=== PATIENT | female | born 1980 | race Caucasian/White ===

== ENCOUNTER 2016-09-18 08:23 | Emergency (ER) | payer BC ==
[2016-09-18 08:38] VITALS: BP 138/95
--- NOTE | 2016-09-18 09:16 | UC ---
Headache HPI - HPI Summary HPI Summary: 36 yo female with headache which started about 2 weeks ago after returning from trip to [facility]. She intially had diarrhea and was seen a [facility] and had IV fluids Had a mild VELASQUEZ then diarrhea lasted 2 days Headache is primarily right frontal and radiates to occiput some nausea and photophobia no relief with OTC meds no fever no stiff neck no hx migraines no sinus symptoms - History Of Current Complaint Chief Complaint: UC Stated Complaint: HEADACHE Time Seen by Provider: 09/18/16 09:00 Hx Obtained From: Patient Hx Last Menstrual Period: 09/03/16 Onset/Duration: Gradual Onset, Lasting Weeks Onset Of Symptoms: Gradual Initially Headache Was: Mild Currently Pain Is: Severe Pain Intensity: 8 Pain Scale Used: 0-10 Numeric Timing: Constant Character: Throbbing Location of Headache: Frontal - right Aggravating Factor: Nothing Allevating Factors: Nothing Associated Signs And Symptoms: Positive: Nausea - Allergies/Home Medications Allergies/Adverse Reactions: Allergies Allergy/AdvReac Type Severity Reaction Status Date / Time No Known Allergies Allergy Verified 04/11/16 10:39 Home Medications: Home Medications Ibuprofen [Advil] 800 mg PO Q6H PRN 09/18/16 [History Confirmed 09/18/16] PMH/Surg Hx/FS Hx/Imm Hx Previously Healthy: Yes - Surgical History Surgical History: Yes Surgery Procedure, Year, and Place: teratoma of right ovary removed 2013 - Family History Known Family History: Positive: None, Cardiac Disease - grandparents Negative: Hypertension, Blood Disorder - Social History Alcohol Use: Occasionally Alcohol Amount: one a day Substance Use Type: None Smoking Status (MU): Never Smoked Tobacco Have You Smoked in the Last Year: No - Immunization History Most Recent Influenza Vaccination: fall 2015 Review of Systems Constitutional: Negative Skin: Negative Eyes: Negative ENT: Negative Respiratory: Negative Cardiovascular: Negative Gastrointestinal: Negative Genitourinary: Negative Motor: Negative Neurovascular: Negative Musculoskeletal: Negative Neurological: Headache Psychological: Negative All Other Systems Reviewed And Are Negative: Yes Physical Exam Triage Information Reviewed: Yes Appearance: Well-Nourished, Pain Distress Vital Signs: Initial Vital Signs Temp 99.2 F 09/18/16 08:33 Pulse 78 09/18/16 08:33 Resp 16 09/18/16 08:33 BP 138/95 09/18/16 08:33 Pulse Ox 100 09/18/16 08:33 Vital Signs Reviewed: Yes Eyes: Positive: Conjunctiva Clear, Other: - eomi/perrl ENT: Positive: Hearing grossly normal, TMs normal, Other: - no sinus tenderness. Negative: Nasal congestion, Nasal drainage, Tonsillar swelling, Tonsillar exudate, Trismus, Muffled/hoarse voice Neck: Positive: Supple, Nontender, No Lymphadenopathy Respiratory: Positive: Lungs clear, Normal breath sounds, No respiratory distress, No accessory muscle use Cardiovascular: Positive: RRR Abdomen Description: Positive: No Organomegaly, Soft. Negative: CVA Tenderness (R), CVA Tenderness (L) Musculoskeletal: Positive: ROM Intact, No Edema Neurological: Positive: Alert, Other: - gcs 15/15, non focal exam/normal gait Psychological Exam: Normal Skin Exam: Normal Diagnostics - Laboratory Diagnostic Studies Completed/Ordered: CT brain - Negative Headache Course/Dx - Course Course Of Treatment: unable to medicate here because she is driving - Differential Dx/Diagnosis Provider Diagnoses: headache of uncertain cause Discharge - Discharge Plan Condition: Stable Disposition: HOME Prescriptions: Ondansetron TAB* [Zofran Tab*] 4 mg PO Q6H PRN #10 tab PRN Reason: Nausea traMADol TAB* [Ultram*] 50 mg PO Q4HR PRN #20 tab MDD 6 PRN Reason: Pain Patient Education Materials: Acute Headache (ED) Referrals: Aston Aguilar MD [Primary Care Provider] - 1 Day Additional Instructions: headache of uncertain cause you can continue advil 3 upto 4x day as needed for pain don't take tramadol and drive or work blood work is pending please see your MD in 1-2 days for evaluation and to review your blood work
--- NOTE | 2016-09-18 09:43 | RAD ---
INDICATION: Headache COMPARISON: None TECHNIQUE: Noncontrast axial source images were acquired from the skull base to the vertex. The examination is limited to minor extent secondary to motion artifact FINDINGS: Ventricles/sulci: The ventricles and cisterns are normal in size and configuration for age. Brain parenchyma: There is no focal parenchymal finding, evidence of intracranial mass, or intracranial mass effect. Intracranial hemorrhage:None. Extra-axial spaces: There are no abnormal extra axial fluid collections or evidence of extra-axial mass. Calvarium: There is no calvarial fracture or other calvarial abnormality. Scalp: There is no evidence of scalp or extracalvarial soft tissue abnormality. Paranasal sinuses/mastoid: The paranasal sinuses and mastoid air cells are clear. Other: None. IMPRESSION: Mildly Limited examination. No acute intracranial findings.
[2016-09-18 11:34] LABS: Hematocrit 41 % (35-47); Hemoglobin 13.3 g/dl (12.0-16.0); Mean Corpuscular HGB Conc 33 g/dl (31-36); Mean Corpuscular Hemoglobin 30 pg (27-31); Mean Corpuscular Volume 90 fL (80-97); Mean Platelet Volume 7 um3 (7.4-10.4); Red Blood Count 4.48 10^6/ul (4.0-5.4); Red Cell Distribution Width 14 % (10.5-15)
[2016-09-18 12:05] LABS: Albumin 4.1 g/dL (3.2-5.2); BUN/Creatinine Ratio 19.3 (8-20); Calcium 9.5 mg/dL (8.6-10.3); EGFR African American 152.7 (>60); EGFR Non-African American 118.7 (>60); Globulin 3.1 g/dL (2-4); Potassium 3.9 mmol/L (3.5-5.0); Total Bilirubin 0.5 mg/dL (0.2-1.0); Total Protein 7.2 g/dL (6.4-8.9)
== END 2016-09-18 10:02 | disposition home or self-care (01) ==
LOC: UCEAST 08:23
DX: R51 Headache (principal); R11.0 Nausea
CPT/HCPCS: 36415; 70450; 80053; 85025; 99212; G0463

== ENCOUNTER 2016-11-01 21:21 | Emergency (ER) | payer BC ==
[2016-11-01 21:48] VITALS: BP 133/86
[2016-11-01] MEDS ORDERED: Phenazopyridine TAB* 100 MG PO ONE (22:05)
[2016-11-01] MEDS ORDERED: Ciprofloxacin TAB* 500 MG PO ONE (22:05)
--- NOTE | 2016-11-01 22:12 | UC ---
Complaint Female HPI - HPI Summary HPI Summary: Patient arrives with CC of urgency, frequency, burning upon urination x 7 days. She endorses right sided flank pain as well. She has had kidney and bladder infections in the past. She endorses dark colored and cloudy urine. Denies diaphoresis and chills. Denies known fever. No abnormal vaginal discharge reported. Otherwise healthy. Patient is concerned over gross hematuria which she noticed today. Otherwise healthy and takes no medications. - History Of Current Complaint Chief Complaint: UCGeneralIllness Stated Complaint: URINARY ISSUE Time Seen by Provider: 11/01/16 21:47 Hx Obtained From: Patient Hx Last Menstrual Period: 10/27/16 ?: No Onset/Duration: Sudden Onset Timing: Constant Severity Initially: Moderate Severity Currently: Moderate Pain Intensity: 5 Pain Scale Used: 0-10 Numeric Character: Burning, Cramping Aggravating Factor(s): Urination Alleviating Factor(s): Nothing Associated Signs And Symptoms: Positive: Back Pain - Risk Factors Ectopic Risk Factor: Maternal Age ^ 30 Ovarian Torsion Risk Factor: Reproductive Age, Ovarian Cysts/Tumors - Allergies/Home Medications Allergies/Adverse Reactions: Allergies Allergy/AdvReac Type Severity Reaction Status Date / Time No Known Allergies Allergy Verified 11/01/16 21:37 PMH/Surg Hx/FS Hx/Imm Hx Previously Healthy: Yes - Surgical History Surgical History: Yes Surgery Procedure, Year, and Place: teratoma of right ovary removed 2013 - Family History Known Family History: Positive: None, Cardiac Disease - grandparents Negative: Hypertension, Blood Disorder - Social History Occupation: Employed Full-time Lives: With Family Alcohol Use: Occasionally Alcohol Amount: one a day Substance Use Type: None Smoking Status (MU): Never Smoked Tobacco Have You Smoked in the Last Year: No - Immunization History Most Recent Influenza Vaccination: fall 2015 Review of Systems Constitutional: Negative Respiratory: Negative Cardiovascular: Negative Gastrointestinal: Negative Genitourinary: Dysuria, Hematuria, Frequency, Urgency Neurovascular: Negative Musculoskeletal: Negative Neurological: Negative Psychological: Negative All Other Systems Reviewed And Are Negative: Yes Physical Exam Triage Information Reviewed: Yes Appearance: Well-Appearing, Well-Nourished Vital Signs: Initial Vital Signs Temp 99.3 F 11/01/16 21:39 Pulse 87 11/01/16 21:39 Resp 16 11/01/16 21:39 BP 133/86 11/01/16 21:39 Pulse Ox 100 11/01/16 21:39 Vital Signs Reviewed: Yes Eye Exam: Normal Eyes: Positive: Conjunctiva Clear Dental Exam: Normal Neck exam: Normal Neck: Positive: Supple, Nontender, No Lymphadenopathy Respiratory Exam: Normal Respiratory: Positive: Chest non-tender Cardiovascular Exam: Normal Cardiovascular: Positive: RRR Abdominal Exam: Normal Abdomen Description: Positive: Nontender Musculoskeletal Exam: Normal Neurological Exam: Normal Neurological: Positive: Alert, Muscle Tone Normal Psychological Exam: Normal Psychological: Positive: Normal Response To Family Skin Exam: Normal Complaint Female Dx - Course Course Of Treatment: UA performed. WBC, RBC and leuks seen. Labs WNL. Patient experiencing urgency, frequency and pain on urination. Dark urine noted. No abnormal vaginal discharge or bleeding. No CVA tenderness bilaterally. No previous UTI within last 6 months and no recent Augmentin use. Will treat for uncomplicated UTI. Will treat with Cipro to cover for pyelonephritis. Pyridium given for comfort. Return precautions and follow up with PCP. - Differential Dx/Diagnosis Differential Diagnosis/HQI/PQRI: Cervicitis, Ovarian Cyst, Renal Colic, Ureteral Stone, Urinary Tract Infection Provider Diagnoses: URINARY TRACT INFECTION Discharge - Discharge Plan Condition: Stable Disposition: HOME Prescriptions: Ciprofloxacin TAB* [Cipro 500 MG TAB*] 500 mg PO BID #14 tab Phenazopyridine TAB* [Pyridium 100 mg TAB*] 100 mg PO TID #12 tab Patient Education Materials: Urinary Tract Infection in Women (ED), Acute Pyelonephritis (ED) Referrals: Aston Aguilar MD [Primary Care Provider] - Additional Instructions: Dx. Urinary Tract Infection I have given you information on pyelonephritis If symptoms become worse, come back to UC. Drink plenty of fluids. Supplement with cranberry or tellez juice. You may also take an over the counter cranberry supplement. If you have any questions about this, you may ask your pharmacist. If your symptoms have not improved in 1-2 days, if you develop fever, sweats or chills, please go to your emergency room, or call your PCP. Antibiotics were prescribed to you. Please take as directed. Supplement with over the counter probiotics on the opposite schedule of your antibiotic to prevent secondary infections. Do not take together as they may counteract each other. Pyridium: This medication is used to treat pain, burning, increased urination, and increased urge to urinate. These symptoms are usually caused by infection, injury, surgery, catheter, or other conditions that irritate the lower urinary tract. Pyridium will treat the symptoms of a urinary tract infection, but this medication does not treat the actual infection. Take the antibiotic that your doctor prescribes to treat your infection. Pyridium will most likely darken the color of your urine to an orange or red color. This is a normal effect and is not cause for alarm unless you have other symptoms such as pale or yellowed skin, fever, stomach pain, nausea, and vomiting. Darkened urine may also cause stains to your underwear, which may or may not be removed by laundering. It can also permanently stain soft contact lenses, and you should not wear them while taking this medicine.
== END 2016-11-01 22:25 | disposition home or self-care (01) ==
LOC: UCEAST 21:21
DX: N39.0 Urinary tract infection, site not specified (principal)
CPT/HCPCS: 81003; 87077; 87086; 87186; 99212; A9270-GY; G0463

== ENCOUNTER 2017-02-27 11:40 | Emergency (ER) | payer BC ==
[2017-02-27 12:59] LABS: Hematocrit 43 % (35-47); Mean Corpuscular HGB Conc 32 g/dl (31-36); Mean Corpuscular Hemoglobin 30 pg (27-31); Mean Corpuscular Volume 93 fL (80-97); Mean Platelet Volume 7 um3 (7.4-10.4); Red Blood Count 4.68 10^6/ul (4.0-5.4); Red Cell Distribution Width 14 % (10.5-15)
[2017-02-27 13:06] LABS: Urine Bacteria Absent (Absent); Urine Bilirubin Negative (Negative); Urine Glucose Negative (Negative); Urine Nitrite Negative (Negative)
[2017-02-27] MEDS ORDERED: NS 0.9% 1000 ML* 1,000 ML IV ONE ×2 (13:06→14:21)
[2017-02-27] MEDS ORDERED: Ketorolac INJ* 30 MG/ML 1 ML VIAL IV ONE (13:06)
--- NOTE | 2017-02-27 13:14 | RAD ---
INDICATION: Right flank abdominal pain. COMPARISON: There are no prior studies available for comparison. TECHNIQUE: Multiple real-time images of the kidneys were obtained. FINDINGS: The kidneys are normal in size shape and echogenicity. The right kidney measured 10.6 x 4.4 x 5.7 cm and the left kidney measured 10.5 x 4.6 x 4.0 cm. No significant focal abnormality or hydronephrosis was present. IMPRESSION: NEGATIVE EXAM, NO EVIDENCE FOR HYDRONEPHROSIS.
[2017-02-27 13:34] LABS: ALT 96 U/L (7-52); AST 138 U/L (13-39); Albumin 4.5 g/dL (3.2-5.2); Alkaline Phosphatase 53 U/L (34-104); Anion Gap 15 mmol/L (2-11); BUN/Creatinine Ratio 20.7 (8-20); Blood Urea Nitrogen 12 mg/dL (6-24); CO2 Carbon Dioxide 23 mmol/L (22-32); Calcium 9.3 mg/dL (8.6-10.3); Chloride 101 mmol/L (101-111); EGFR African American 149.6 (>60); EGFR Non-African American 116.3 (>60); Globulin 3.2 g/dL (2-4); Glucose 82 mg/dL (70-100); Sodium 139 mmol/L (133-145); Total Protein 7.7 g/dL (6.4-8.9)
[2017-02-27] MEDS ORDERED: Ondansetron INJ* 2 MG/ML VIAL IV ONE (14:21)
[2017-02-27] MEDS ORDERED: HYDROmorphone* 1 MG/ML 1 ML SYR IV ONE (14:21)
--- NOTE | 2017-02-27 15:13 | RAD ---
Indication: Right flank pain. CT of the abdomen and pelvis was performed without oral or IV contrast administration. Coronal and sagittal reconstructed images were obtained. No lung bases demonstrate no pleural fluid, nodules or masses. Heart is of normal size without evidence of pericardial effusion. Liver is normal in size. It is diffusely decreased in density consistent with hepatic steatosis. No focal lesions are noted. The gallbladder demonstrates no calcified gallstones, pericholecystic fluid or wall thickening. Common duct is not dilated. The pancreas demonstrates no mass or pancreatic ductal dilatation. The spleen is normal in size. No adrenal lesions are noted. The kidneys demonstrate no hydronephrosis in either kidney. No evidence of hydroureter is noted. Aorta and inferior vena cava are unremarkable. No dilated loops of bowel are noted. The colon is filled with stool. CT of the pelvis demonstrates uterus in place with IUD in place. Myomatous changes are noted. Low density structure in the left adnexa presumably a left ovarian cyst measuring up to 4.3 cm is noted. No free fluid is identified. No dilated loops of bowel are noted. No hernias are noted. Anterior abdominal wall is otherwise unremarkable. The bony structures are otherwise unremarkable. IMPRESSION: LEFT OVARIAN CYST MEASURING UP TO 4.2 CM. NO EVIDENCE OF OBSTRUCTIVE UROPATHY IS NOTED. HEPATIC STEATOSIS IS NOTED.
[2017-02-27 15:56] VITALS: BP 149/96
--- NOTE | 2017-03-02 15:41 | ED ---
I, Jesse,Javier, scribed for Edis Gonzalez MD on 02/27/17 at 1235 . Back Pain - HPI Summary HPI Summary: This 36 y/o female presents to ED for bilat low back pain, more notable on right , since 3 days ago. Positive fever since 2 days ago. Excedrin or APAP does not relieve the pain. PMHx includes "multiple kidney infections" and kidney stones. She decided to visit ED to r/o another kidney stone today. Primary care involves Dr. Aguilar, but does not involve any urologist. - History of Current Complaint Chief Complaint: EDFlankPain Stated Complaint: RT FLANK PAIN Time Seen by Provider: 02/27/17 12:06 Hx Obtained From: Patient Hx Last Menstrual Period: 10/27/16 Onset/Duration: Sudden Onset, Still Present Onset/Duration: Started Days Ago, Atraumatic, Still Present Timing: Constant Pain Intensity: 4 Pain Scale Used: 0-10 Numeric Character: Sharp Aggravating Symptom(s): Walking Alleviating Symptom(s): Nothing Associated Signs And Symptoms: Negative: Bladder Incontinence, Bowel Incontinence - Allergies/Home Medications Allergies/Adverse Reactions: Allergies Allergy/AdvReac Type Severity Reaction Status Date / Time No Known Allergies Allergy Verified 02/27/17 11:44 PMH/Surg Hx/FS Hx/Imm Hx Endocrine/Hematology History: Denies: Hx Diabetes History: Reports: Hx Kidney Infection, Hx Kidney Stones - Surgical History Surgery Procedure, Year, and Place: teratoma of right ovary removed 2013 Infectious Disease History: Yes Infectious Disease History: Reports: Hx Clostridium Difficile - 2011, Hx Shingles, History Other Infectious Disease - HX MENINGITIS Denies: Traveled Outside the [place] in Last 30 Days - Family History Known Family History: Positive: Cardiac Disease - grandparents Negative: Hypertension, Blood Disorder - Social History Alcohol Use: Occasionally Alcohol Amount: socially Hx Substance Use: No Substance Use Type: Reports: None Hx Tobacco Use: No Smoking Status (MU): Never Smoked Tobacco Have You Smoked in the Last Year: No Review of Systems Negative: Fever Negative: dysuria Positive: Other - right low back pain All Other Systems Reviewed And Are Negative: Yes Physical Exam Triage Information Reviewed: Yes Vital Signs On Initial Exam: Initial Vitals Temp Pulse Resp BP Pulse Ox 98.6 F 79 16 139/89 97 02/27/17 11:44 02/27/17 11:44 02/27/17 11:44 02/27/17 11:44 02/27/17 11:44 Vital Signs Reviewed: Yes Appearance: Positive: Well-Appearing, No Pain Distress Skin: Positive: Warm, Skin Color Reflects Adequate Perfusion, Dry Head/Face: Positive: Normal Head/Face Inspection Eyes: Positive: Normal Neck: Positive: Supple, Nontender Respiratory/Lung Sounds: Positive: Breath Sounds Present Cardiovascular: Positive: Normal Abdomen Description: Positive: Other: - Positive right CVA tenderness Musculoskeletal: Positive: Normal Neurological: Positive: Normal Psychiatric: Positive: Affect/Mood Appropriate AVPU Assessment: Alert - [place] Coma Scale Coma Scale Total: 15 Diagnostics - Vital Signs Vital Signs Temp Pulse Resp BP Pulse Ox 02/27/17 12:01 98.9 F 71 16 130/90 98 02/27/17 11:44 98.6 F 79 16 139/89 97 - Laboratory Lab Results: Lab Results 02/27/17 02/27/17 02/27/17 Range/Units 12:05 12:40 12:40 WBC 4.0 (3.5-10.8) 10^3/ul RBC 4.68 (4.0-5.4) 10^6/ul Hgb 14.0 (12.0-16.0) g/dl Hct 43 (35-47) % MCV 93 (80-97) fL MCH 30 (27-31) pg MCHC 32 (31-36) g/dl RDW 14 (10.5-15) % Plt Count 190 (150-450) 10^3/ul MPV 7 L (7.4-10.4) um3 Neut % (Auto) 60.0 (38-83) % Lymph % (Auto) 22.5 L (25-47) % Schleicher % (Auto) 13.1 H (1-9) % Eos % (Auto) 3.0 (0-6) % Baso % (Auto) 1.4 (0-2) % Absolute Neuts (auto) 2.4 (1.5-7.7) 10^3/ul Absolute Lymphs (auto) 0.9 L (1.0-4.8) 10^3/ul Absolute Monos (auto) 0.5 (0-0.8) 10^3/ul Absolute Eos (auto) 0.1 (0-0.6) 10^3/ul Absolute Basos (auto) 0.1 (0-0.2) 10^3/ul Absolute Nucleated RBC 0 10^3/ul Nucleated RBC % 0.1 Sodium 139 (133-145) mmol/L Potassium 4.0 (3.5-5.0) mmol/L Chloride 101 (101-111) mmol/L Carbon Dioxide 23 (22-32) mmol/L Anion Gap 15 H (2-11) mmol/L BUN 12 (6-24) mg/dL Creatinine 0.58 (0.51-0.95) mg/dL Est GFR ( Amer) 149.6 (>60) Est GFR (Non-Af Amer) 116.3 (>60) BUN/Creatinine Ratio 20.7 H (8-20) Glucose 82 (70-100) mg/dL Calcium 9.3 (8.6-10.3) mg/dL Total Bilirubin 0.50 (0.2-1.0) mg/dL AST 138 H (13-39) U/L ALT 96 H (7-52) U/L Alkaline Phosphatase 53 (34-104) U/L Total Protein 7.7 (6.4-8.9) g/dL Albumin 4.5 (3.2-5.2) g/dL Globulin 3.2 (2-4) g/dL Albumin/Globulin Ratio 1.4 (1-3) Beta HCG, Quant < 0.60 mIU/mL Urine Color Yellow Urine Appearance Turbid Urine pH 5.0 (5-9) Ur Specific [place] 1.025 (1.010-1.030) Urine Protein 1+(30 mg/dl) H (Negative) Urine Ketones Trace H (Negative) Urine Blood Negative (Negative) Urine Nitrate Negative (Negative) Urine Bilirubin Negative (Negative) Urine Urobilinogen Negative (Negative) Ur Leukocyte Esterase 1+ H (Negative) Urine WBC (Auto) Trace(0-5/hpf) (Absent) Urine RBC (Auto) Absent (Absent) Ur Squamous Epith Cells Present H (Absent) Urine Bacteria Absent (Absent) Urine Glucose Negative (Negative) Result Diagrams: 02/27/17 12:40 02/27/17 12:40 Lab Statement: Any lab studies that have been ordered have been reviewed, and results considered in the medical decision making process. - CT Ab/P CT Interpretation: Positive (See Comments) - LEFT OVARIAN CYST MEASURING UP TO 4.2 CM. NO EVIDENCE OF OBSTRUCTIVE UROPATHY IS NOTED. HEPATIC STEATOSIS IS NOTED. CT Interpretation Completed By: Radiologist - Additional Comments Diagnostic Additional Comments: US renal -- NEGATIVE EXAM, NO EVIDENCE FOR HYDRONEPHROSIS. Re-Evaluation - Re-Evaluation First Eval Re-Evaluation Time: 14:17 Comment: MD in room to share US, bloodwork, and UA with pt and male family member present at bedside. Pt is feeling better with toradol IV and fluid. Second Eval Re-Evaluation Time: 15:22 Comment: MD in room to update pt with CT Ab/P imaging studies. Plan of care involving discharge and outpatient f/u is discussed with pt, and she is agreeable. Back Pain Course/Dx - Course Course Of Treatment: Ms. Steven came in concerned about another kidney stone or infection of which she has had several. Nothing was found on our W/U and she went home to F/U as needed. - Diagnoses Provider Diagnoses: Back pain Discharge - Discharge Plan Condition: Stable Disposition: HOME Prescriptions: HYDROcodone/ACETAMIN 5-325 MG* [[place] 5-325 TAB*] 1 tab PO Q6H PRN #20 tab MDD 4 PRN Reason: Pain Patient Education Materials: Hydrocodone/Acetaminophen (By mouth), Back Pain ( ED) Referrals: Aston Aguilar MD [Primary Care Provider] - 2 Days The documentation as recorded by the Jesse ventura Soohyun accurately reflects the service I personally performed and the decisions made by me, Edis Gonzalez MD.
== END 2017-02-27 15:57 | disposition home or self-care (01) ==
LOC: ED 11:40
DX: M54.5 Low back pain (principal); Z87.442 Personal history of urinary calculi
CPT/HCPCS: 36415; 74176; 76775; 80053; 81003; 81015; 84702; 85025; 87086; 96360; 96374; 96375; 99282; J1170; J1885; J2405

== ENCOUNTER 2017-03-05 08:22 | Emergency (ER) | payer BC ==
[2017-03-05 08:38] VITALS: BP 129/94
--- NOTE | 2017-03-05 08:57 | UC ---
Lower Extremity/Ankle HPI - HPI Summary HPI Summary: This is an otherwise healthy 36 yo female who presents with c/o L ankle pain and swelling after an injury yesterday. She states she fell on to the lateral portion of the ankle on the garage floor yesterday. The fall was mechanical, no syncope or presyncopal symptoms. She had immediate pain and swelling, but has been able to ambulate. She has been using NSAIDs and ice and borrowed a splint from a friend. - History of Current Complaint Chief Complaint: UCLowerExtremity Stated Complaint: LEFT ANKLE PAIN Hx Last Menstrual Period: 2 weeks - Allergies/Home Medications Allergies/Adverse Reactions: Allergies Allergy/AdvReac Type Severity Reaction Status Date / Time No Known Allergies Allergy Verified 03/05/17 08:38 PMH/Surg Hx/FS Hx/Imm Hx Previously Healthy: Yes - Surgical History Surgical History: Yes Surgery Procedure, Year, and Place: teratoma of right ovary removed 2013 - Family History Known Family History: Positive: None, Cardiac Disease - grandparents Negative: Hypertension, Blood Disorder - Social History Alcohol Use: one daily Alcohol Amount: one a day Substance Use Type: None Smoking Status (MU): Never Smoked Tobacco Have You Smoked in the Last Year: No - Immunization History Most Recent Influenza Vaccination: fall 2015 Review of Systems Constitutional: Negative Skin: Bruising Eyes: Negative ENT: Negative Respiratory: Negative Cardiovascular: Negative Gastrointestinal: Negative Genitourinary: Negative Motor: Decreased ROM Neurovascular: Negative Musculoskeletal: Arthralgia, Decreased ROM, Edema Neurological: Negative Psychological: Negative All Other Systems Reviewed And Are Negative: Yes Physical Exam Triage Information Reviewed: Yes Appearance: Well-Appearing Vital Signs: Initial Vital Signs Temp 97.6 F 03/05/17 08:32 Pulse 89 03/05/17 08:32 Resp 18 03/05/17 08:32 BP 129/94 03/05/17 08:32 Vital Signs Reviewed: Yes Respiratory: Positive: Chest non-tender, Lungs clear. Negative: Crackles, Rhonchi, Stridor, Wheezing Cardiovascular: Positive: RRR, No Murmur Musculoskeletal: Positive: ROM Limited @, Edema @ - L ankle, Other: - significant edema and ecchymosis along lateral foot/ankle. TTP over lateral mallelous Diagnostics - Laboratory Diagnostic Studies Completed/Ordered: XR ankle - minimally displaced distal L fibula fx Lower Extremity Course/Dx - Course Course Of Treatment: This is an otherwise healthy 36 yo female who fell on her L ankle yesterday with an inversion type injury. XR demonstrates distal fibula fracture. Recommend immobilization in a CAM boot with crutches to maintain NWB status until evaluated by orthopedic surgeon. - Differential Dx/Diagnosis Differential Diagnosis/HQI/PQRI: Contusion, Dislocation, Fracture (Closed), Sprain, Strain Provider Diagnoses: 1. Acute L distal fibula fracture Discharge - Discharge Plan Condition: Stable Disposition: HOME Patient Education Materials: Ankle Fracture (ED) Referrals: Aston Aguilar MD [Primary Care Provider] - Aston Mcnair MD [Medical Doctor] - 3 Days Additional Instructions: Instructions: 1. Stay in CAM boot and use crutches to limit weight on your L ankle 2. Call the office of Dr Mcnair to establish an appointment for follow up 3. Take 600-800 mg Ibuprofen 3 times daily for pain/swelling relief. (take with food) 4. Apply ice frequently and keep the leg elevated
--- NOTE | 2017-03-05 09:25 | RAD ---
Indication: Lateral LEFT ankle pain and swelling following injury yesterday. Fall. Comparison: No relevant prior exams available on the [facility] PACS for comparison. Technique: AP, mortise, and lateral views LEFT ankle. Report: Oblique posterior cephalad to anterior caudal fracture of the distal fibula terminating inferiorly at the level of the ankle mortise with one cortex width lateral displacement. Negative for additional fracture. The ankle mortise remains congruent. Significant overlying soft tissue swelling. Suggestion of talocrural joint effusion distending the posterior recess. IMPRESSION: Kerr type B distal fibula fracture pattern.
== END 2017-03-05 10:00 | disposition home or self-care (01) ==
LOC: UCCORT 08:22
DX: S82.832A Other fracture of upper and lower end of left fibula, initial encounter for closed fracture (principal); W18.30XA Fall on same level, unspecified, initial encounter; Y93.89 Activity, other specified; Y92.59 Other trade areas as the place of occurrence of the external cause
CPT/HCPCS: 99213; G0463

== ENCOUNTER 2017-06-16 07:39 | Emergency (ER) | payer BC ==
[2017-06-16 08:03] VITALS: BP 135/84
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
== END 2017-06-16 08:25 | disposition home or self-care (01) ==
LOC: UCEAST 07:39
DX: J32.9 Chronic sinusitis, unspecified (principal); Z72.89 Other problems related to lifestyle
CPT/HCPCS: 99212; G0463

== ENCOUNTER 2017-07-08 11:32 | Emergency (ER) | payer BC ==
[2017-07-08 12:14] VITALS: BP 127/83
--- NOTE | 2017-07-08 12:35 | UC ---
Lower Extremity/Ankle HPI - HPI Summary HPI Summary: Left medial posterior calf swelling and superficial lump with surrounding bruising. She had a left leg fracture in February. She had a ultrsound one time since then which was negative. She has had left leg swelling since the fracture and today there is swelling as well but it is the same as prior. She has no hx of dvt or pe and does not smoke nor take hormones of any kind such as OCP. There is no much pain with walking but more with palpation of the area. - History of Current Complaint Chief Complaint: UCLowerExtremity Stated Complaint: POSS. 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 Hx Last Menstrual Period: ~06/17/17 Onset/Duration: Gradual Onset, Lasting Days Severity Initially: Mild Severity Currently: Mild Aggravating Factor(s): Other - Palpation. Alleviating Factor(s): Rest Able to Bear Weight: Yes - Allergies/Home Medications Allergies/Adverse Reactions: Allergies Allergy/AdvReac Type Severity Reaction Status Date / Time No Known Allergies Allergy Verified 06/16/17 07:49 PMH/Surg Hx/FS Hx/Imm Hx Previously Healthy: No - Leg fracture in February. - Surgical History Surgical History: Yes Surgery Procedure, Year, and Place: teratoma of right ovary removed 2013 - Family History Known Family History: Positive: None, Cardiac Disease - grandparents Negative: Hypertension, Blood Disorder - Social History Occupation: Employed Full-time Alcohol Use: Daily Alcohol Amount: one a day Substance Use Type: None Smoking Status (MU): Never Smoked Tobacco Have You Smoked in the Last Year: No - Immunization History Most Recent Influenza Vaccination: May 2017 Review of Systems Skin: Bruising Musculoskeletal: Calf Tenderness All Other Systems Reviewed And Are Negative: Yes Physical Exam Triage Information Reviewed: Yes Appearance: Well-Appearing, No Pain Distress, Well-Nourished Vital Signs: Initial Vital Signs Temp 97.9 F 07/08/17 12:03 Pulse 94 07/08/17 12:03 Resp 16 07/08/17 12:03 BP 127/83 07/08/17 12:03 Pulse Ox 98 07/08/17 12:03 Vital Signs Reviewed: Yes Eyes: Positive: Conjunctiva Clear ENT: Positive: Normal ENT inspection Neck: Positive: Supple, Nontender, No Lymphadenopathy Respiratory: Positive: No respiratory distress, No accessory muscle use Cardiovascular: Positive: RRR, No Murmur, Pulses Normal - Kiran pedal pulses intact. Abdomen Description: Negative: Distended, Guarding Musculoskeletal: Positive: Strength Intact, ROM Intact, Other: - Left calf superficial bruising the size of a lemon with superficial sore lump under the skin. The calf otherwise is not tender. Neg homans. There is trace pitting edema. The left calf measures 1.5cm larger than the right. Neurological: Positive: Alert, Muscle Tone Normal. Negative: Fatigued Psychological: Positive: Age Appropriate Behavior Skin: Positive: Other - Bruise as described.. Negative: rashes Lower Extremity Course/Dx - Course Course Of Treatment: She is here to evalate her leg for possible ultrasound. We have a long discussion about the risks of an untreated left DVT. 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 Her Significant other is also present for the conversation. We do not have ultrasound here today and she does not want to go to the ED because her co pay is higher for ED visits. She repeatedly says she is not worried about waiting a day although I make it perfectly clear that the sooner we can find out the better. She again refuses to be transferred for definitive answer. She does agree to call 911 at any point should her symptoms worsen. We at least get her to agree to starting lovenox in the meantime. She denies bleeding d/o, anemia, kidney disease or current epidodes of bleeding or melena. We check the u/s schedule and find that the AM appt has been cancelled. We urge her to return tomorrow for ultraound. - Differential Dx/Diagnosis Differential Diagnosis/HQI/PQRI: Cellulitis, Compartment Syndrome, Contusion, Foreign Body, Fracture (Closed), Fracture (Open), Infection, Osteomyelitis, Sciatica, Septic Arthritis, Subungual Hematoma, Sprain, Strain, Tendonitis Provider Diagnoses: against medical advice. left leg swelling. left leg calf pain/tenderness. left calf possible DVT. Discharge - Discharge Plan Condition: Guarded Disposition: HOME Prescriptions: Enoxaparin(*) [Lovenox(*)] 70 mg SUBCUT Q12HR #7 syringe Referrals: Aston Aguilar MD [Primary Care Provider] -
== END 2017-07-08 13:02 | disposition home or self-care (01) ==
LOC: UCCORT 11:32
DX: R60.0 Localized edema (principal); M79.662 Pain in left lower leg; Z87.81 Personal history of (healed) traumatic fracture
CPT/HCPCS: 99212; G0463

== ENCOUNTER 2017-08-01 07:39 | Emergency (ER) | payer BC ==
[2017-08-01 07:54] VITALS: BP 120/90
--- NOTE | 2017-08-01 08:16 | UC ---
FLU HPI - HPI Summary HPI Summary: A WEEK AND A HALF OF SUBJECTIVE FEVER, CHILLS, ST, MYALGIAS, VELASQUEZ, COUGH, NASAL CONGESTION AND SINUS PRESSURE. HAS POSITIVE FLU EXPOSURE PRIOR TO ONSET OF SX. FLU TEST WAS NEGATIVE ON 07/24/17. SX HAVE GOTTEN WORSE. PT UP TO DATE WITH FLU SHOT. - History of Current Complaint Chief Complaint: UCRespiratory Stated Complaint: CHILLS SORE THROAT Time Seen by Provider: 08/01/17 08:03 Hx Obtained From: Patient Hx Last Menstrual Period: jul 16 Onset/Duration: Gradual Onset, Lasting Days, Still Present Severity Currently: Moderate Severity Initially: Moderate Pain Intensity: 4 Pain Scale Used: 0-10 Numeric Associated Signs & Symptoms: Positive: Fever, Myalgia, Cough, Sore Throat, Nasal Congestion, Headache - Allergy/Home Medications Allergies/Adverse Reactions: Allergies Allergy/AdvReac Type Severity Reaction Status Date / Time No Known Allergies Allergy Verified 06/16/17 07:49 PMH/Surg Hx/FS Hx/Imm Hx Previously Healthy: Yes - Surgical History Surgical History: Yes Surgery Procedure, Year, and Place: teratoma of right ovary removed 2013 - Family History Known Family History: Positive: None, Cardiac Disease - grandparents, Hypertension Negative: Blood Disorder - Social History Alcohol Use: Daily Alcohol Amount: one a day Substance Use Type: None Smoking Status (MU): Never Smoked Tobacco Have You Smoked in the Last Year: No - Immunization History Most Recent Influenza Vaccination: May 2017 Review of Systems Constitutional: Fever, Chills, Fatigue ENT: Sore Throat, Nasal Discharge Respiratory: Cough Cardiovascular: Negative Gastrointestinal: Negative Musculoskeletal: Myalgia Neurological: Headache All Other Systems Reviewed And Are Negative: Yes Physical Exam Triage Information Reviewed: Yes Appearance: No Pain Distress, Well-Nourished, Ill-Appearing - MOD Vital Signs: Initial Vital Signs Temp 97.6 F 08/01/17 07:49 Pulse 77 08/01/17 07:49 Resp 18 08/01/17 07:49 BP 120/90 08/01/17 07:49 Pulse Ox 98 08/01/17 07:49 Eyes: Positive: Conjunctiva Clear ENT: Positive: Hearing grossly normal, Pharyngeal erythema, Nasal congestion, TMs normal, Uvula midline. Negative: Tonsillar swelling, Tonsillar exudate, Muffled voice Neck: Positive: Supple, Nontender, No Lymphadenopathy Respiratory Exam: Normal Cardiovascular Exam: Normal Abdomen Description: Positive: Soft Musculoskeletal: Positive: No Edema Neurological: Positive: Alert Psychological: Positive: Age Appropriate Behavior Skin: Negative: rashes Diagnostics - Laboratory Diagnostic Studies Completed/Ordered: FLU SWAB NEGATIVE Flu Course/Dx - Differential Dx/Diagnosis Provider Diagnoses: ACUTE SINUSITIS Discharge - Discharge Plan Condition: Stable Disposition: HOME Prescriptions: Amoxicillin/Clavulanate TAB* [Augmentin TAB 875*] 875 mg PO BID #20 tab Patient Education Materials: Sinusitis (ED) Forms: *Work Release Referrals: Aston Aguilar MD [Medical Doctor] - If Needed Additional Instructions: FLU SWAB NEGATIVE. YOUR BLOOD PRESSURE WAS ELEVATED TODAY. THIS MAY BE DUE TO YOUR ACUTE CONDITION. MONITOR AND FOLLOW-UP WITH YOUR PCP WITHIN 4 WEEKS IF IT HAS NOT RETURNED TO NORMAL.
== END 2017-08-01 08:45 | disposition home or self-care (01) ==
LOC: UCEAST 07:39
DX: J01.90 Acute sinusitis, unspecified (principal); Z20.828 Contact with and (suspected) exposure to other viral communicable diseases
CPT/HCPCS: 87502; 99212; G0463

== ENCOUNTER 2018-01-14 07:32 | Emergency (ER) | payer BC ==
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
[2018-01-14 08:06] VITALS: BP 125/87
--- NOTE | 2018-01-14 08:45 | RAD ---
INDICATION: Left rib pain. Injury COMPARISON: None TECHNIQUE: Multiple views of the ribs were obtained. FINDINGS: Bones: There is no evidence of acute rib fracture. LUNGS: The lungs are clear. There is no pneumothorax. Pleural spaces: There is no evidence of hemothorax. Other: None IMPRESSION: NEGATIVE EXAMINATION.
== END 2018-01-14 09:06 | disposition home or self-care (01) ==
LOC: UCCORT 07:32
DX: S20.20XA Contusion of thorax, unspecified, initial encounter (principal); V89.0XXA Person injured in unspecified motor-vehicle accident, nontraffic, initial encounter; Y93.89 Activity, other specified; Y92.9 Unspecified place or not applicable; J02.9 Acute pharyngitis, unspecified
CPT/HCPCS: 87651; 99212; G0463

== ENCOUNTER 2018-04-10 09:33 | Emergency (ER) | payer BC ==
[2018-04-10 10:59] VITALS: BP 139/94
--- NOTE | 2018-04-10 12:15 | UC ---
Respiratory Complaint HPI - HPI Summary HPI Summary: 4 DAYS OF SINUS PRESSURE, CONGESTION, GREEN NASAL DISCHARGE, VELASQUEZ AND MILD COUGH. HAD FEVER LAST NIGHT AND THIS MORNING 101. - History of Current Complaint Chief Complaint: UCRespiratory Stated Complaint: SINUS COMPLAINT Time Seen by Provider: 04/10/18 11:13 Hx Obtained From: Patient Hx Last Menstrual Period: 03/28/18 Onset/Duration: Gradual Onset, Lasting Days, Still Present Timing: Constant Severity Initially: Moderate Severity Currently: Moderate Pain Intensity: 2 Pain Scale Used: 0-10 Numeric Aggravating Factors: Nothing Alleviating Factors: Nothing Associated Signs And Symptoms: Positive: Fever, Nasal Congestion, Sinus Discomfort. Negative: Dyspnea, Wheezing - Allergies/Home Medications Allergies/Adverse Reactions: Allergies Allergy/AdvReac Type Severity Reaction Status Date / Time No Known Allergies Allergy Verified 04/10/18 10:59 PMH/Surg Hx/FS Hx/Imm Hx Previously Healthy: Yes - Surgical History Surgical History: Yes Surgery Procedure, Year, and Place: teratoma of right ovary removed 2013 - Family History Known Family History: Positive: Cardiac Disease - grandparents, Hypertension Negative: Blood Disorder - Social History Alcohol Use: Daily Alcohol Amount: one a day Substance Use Type: None Smoking Status (MU): Never Smoked Tobacco Have You Smoked in the Last Year: No - Immunization History Most Recent Influenza Vaccination: May 2017 Review of Systems Constitutional: Fever ENT: Sore Throat, Nasal Discharge, Sinus Congestion, Sinus Pain/Tenderness Respiratory: Cough Cardiovascular: Negative Gastrointestinal: Negative Neurological: Headache All Other Systems Reviewed And Are Negative: Yes Physical Exam Triage Information Reviewed: Yes Appearance: Well-Appearing, No Pain Distress, Well-Nourished Vital Signs: Initial Vital Signs Temp 98.4 F 04/10/18 10:56 Pulse 110 04/10/18 10:56 Resp 20 04/10/18 10:56 BP 139/94 04/10/18 10:56 Pulse Ox 100 04/10/18 10:56 Vital Signs Reviewed: Yes Eyes: Positive: Conjunctiva Clear ENT: Positive: Hearing grossly normal, Pharynx normal, TMs normal Neck: Positive: Supple, Nontender, No Lymphadenopathy Respiratory Exam: Normal Cardiovascular Exam: Normal Abdomen Description: Positive: Soft Musculoskeletal: Positive: No Edema Neurological: Positive: Alert Psychological: Positive: Age Appropriate Behavior Skin: Negative: rashes UC Diagnostic Evaluation - Laboratory O2 Sat by Pulse Oximetry: 100 Respiratory Course/Dx - Differential Dx/Diagnosis Provider Diagnoses: ACUTE RHINOSINUSITIS Discharge - Sign-Out/Discharge Documenting (check all that apply): Patient Departure All imaging exams completed and their final reports reviewed: No Studies - Discharge Plan Condition: Stable Disposition: HOME Prescriptions: Amoxicillin/Clavulanate TAB* [Augmentin TAB 875*] 875 mg PO BID #20 tab Patient Education Materials: Sinusitis (ED) Referrals: Aston Aguilar MD [Primary Care Provider] - If Needed - Billing Disposition and Condition Condition: STABLE Disposition: Home
== END 2018-04-10 12:03 | disposition home or self-care (01) ==
LOC: UCEAST 09:33
DX: J01.90 Acute sinusitis, unspecified (principal)
CPT/HCPCS: 99212; G0463

== ENCOUNTER 2018-05-30 07:19 | Emergency (ER) | payer BC ==
[2018-05-30 07:33] VITALS: BP 128/78
--- NOTE | 2018-05-30 07:45 | UC ---
Eye Complaint HPI - HPI Summary HPI Summary: 37 yo F c/o swelling of L eye x3-4 days. Began with what she believed was a pimple above the L eye, but it was pruritic.. She attempted to squeeze it and scratched it. the following morning she awoke w swelling of the eyelids and crusting of the lids. there was no redness of the eye or pain. no change in vision. Swelling has since improved and today, she did not awake with any crusting of the lids. She presents today for further eval to be sure she is not missing a cellulitis. When awaking this morning, swelling was both above and below eye. At this time she has mild swelling below the lid only. meds reviewed w patient. Family hx non-contributory - History of Current Complaint Chief Complaint: UCEye Stated Complaint: EYE COMPLAINT Time Seen by Provider: 05/30/18 07:34 Hx Obtained From: Patient Hx Last Menstrual Period: 05/14/18 Pain Intensity: 3 - Allergies/Home Medications Allergies/Adverse Reactions: Allergies Allergy/AdvReac Type Severity Reaction Status Date / Time No Known Allergies Allergy Verified 05/30/18 07:33 Home Medications: Home Medications Aspirin/Acetaminophen/Caffeine [Excedrin Migraine Caplet] 1 tab PO ONCE PRN 08/16 [History Confirmed 05/30/18] Pseudoephedrine HCl [Sudafed] 1 tab PO ONCE PRN 05/30/18 [History Confirmed 08/16] PMH/Surg Hx/FS Hx/Imm Hx Previously Healthy: Yes - Surgical History Surgical History: Yes Surgery Procedure, Year, and Place: teratoma of right ovary removed 2013 - Family History Known Family History: Positive: None, Cardiac Disease - grandparents, Hypertension Negative: Blood Disorder - Social History Alcohol Use: None Alcohol Amount: one a day Substance Use Type: None Smoking Status (MU): Never Smoked Tobacco Have You Smoked in the Last Year: No - Immunization History Most Recent Influenza Vaccination: May 2017 Review of Systems Constitutional: Negative Skin: Other - swelling Eyes: Drainage All Other Systems Reviewed And Are Negative: Yes Physical Exam Triage Information Reviewed: Yes Appearance: Well-Appearing, No Pain Distress, Well-Nourished Vital Signs: Initial Vital Signs Temp 98.4 F 05/30/18 07:25 Pulse 86 05/30/18 07:25 Resp 18 05/30/18 07:25 BP 128/78 05/30/18 07:25 Pulse Ox 99 05/30/18 07:25 Vital Signs Reviewed: Yes Eyes: Positive: Conjunctiva Clear, Other: - edema of lower lid; 2mm abrasion superior to and R lateral to L eye, mild surrounding erythema, no warmth, no swelling. Negative: Discharge Respiratory: Positive: No respiratory distress, No accessory muscle use Abdomen Description: Negative: Distended Neurological: Positive: Alert Psychological: Positive: Age Appropriate Behavior Eye Complaint Course/Dx - Differential Dx/Diagnosis Differential Diagnosis/HQI/PQRI: Other - reactive edema, insect bite, cellulitis Provider Diagnoses: reactive edema Discharge - Sign-Out/Discharge Documenting (check all that apply): Patient Departure All imaging exams completed and their final reports reviewed: No Studies - Discharge Plan Condition: Stable Disposition: HOME Referrals: Aston Aguilar MD [Primary Care Provider] - Additional Instructions: If you develop crusting of the eyelids again, return to Urgent Care or see your doctor. If you develop blurred vision, pain in the eye, expansion of redness, or headache, go to an Emergency Room for evaluation - Billing Disposition and Condition Condition: STABLE Disposition: Home
== END 2018-05-30 07:59 | disposition home or self-care (01) ==
LOC: UCEAST 07:19
DX: H02.845 Edema of left lower eyelid (principal); H02.844 Edema of left upper eyelid
CPT/HCPCS: 99211; G0463